=== PATIENT | male | born 1940 ===

== ENCOUNTER 2020-04-05 01:44 | Emergency (ER) | payer MEDICARE ==
[~2020-04-05] VITALS: Ht 177.8 cm; Wt 95.3 kg
[~2020-04-05 01:44] MED LIST: APIX5TAB PO; ASCO10006 PO; ASPI-999 PO; CHOL2000 PO; CYAN250010 PO; DILT240C92 PO; Finasteride PO; LOSA100T57 PO; MAGN250T13 PO; MELO15TA39 PO; MTP100TCR PO; MTP25TSR PO; MULT-974 PO; SIMV20TA26 PO; TMSL.4C PO; UBID1CAP53 PO; UBID50TA3 PO; VITA40TA PO; ZINC50TA51 PO; [UNRECOGNIZED DRUG - CODE] MC
--- OUTSIDE RECORDS SUMMARY | 2020-04-05 01:50 | XMS REPORT | Continuity of Care Document ---
Author Organization Unknown Address Unknown Phone Unavailable Allergies Active Description Code Type Severity Reaction Onset Reported/Identified Relationship to Patient Clinical Status Yes No Known Drug Allergies [id number] Drug Allergy Unknown N/A 02/28/2019 Medications There is no data. Problems Date Dx Coded Attending Type Code Diagnosis Diagnosed By 03/01/2019 KELLY ROMAN MD, Ot E78. 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 91 UNSPECIFIED ATRIAL FIBRILLATION 03/01/2019 KELLY ROMAN MD, Ot I71. 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 1 BENIGN PROSTATIC HYPERPLASIA WITH LOWER 03/01/2019 KELLY ROMAN MD Ot R33. 8 OTHER RETENTION OF URINE 03/01/2019 KELLY ROMAN MD Ot Z91. 19 PATIENT'S NONCOMPLIANCE W OT MEDICAL TR Procedures There is no data. Results Test Result Range Complete urinalysis with reflex to cultu re - 02/28/19 06:45 Urine color determination YELLOW NRG Urine clarity determination CLEAR NR G Urine pH measurement by test strip 6 5-9 Specific gravity of urine by test strip 1.015 1.016-1.022 Urine protein assay by test strip, semi-quantitative 2+ NEGATIVE Urine glucose detection by automated test strip NE GATIVE NEGATIVE Erythrocytes detection in urine sediment by light micr oscopy 1+ NEGATIVE Urine ketones detection by automated test strip NE GATIVE NEGATIVE Urine nitrite detection by test strip NEGATIVE NEGATIVE Urine total bilirubin detection by test strip NEGA TIVE NEGATIVE Urine urobilinogen measurement by automated test strip (mass/volume) NORMAL NORMAL Urine leukocyte esterase detection by dipstick NEG ATIVE NEGATIVE Automated urine sediment erythrocyte cou nt by microscopy (number/high power field) [HPF] NRG Automated urine sediment leukocyte count by microscopy (number/high power field) NONE NRG Bacteria detection in urine sediment by light microsco py NEGATIVE NRG Crystals detection in urine sediment by light microsco py NONE NRG Casts detection in urine sediment by light microscopy NONE NRG Mucus detection in urine sediment by light microscopy NEGATIVE NRG Complete urinalysis with reflex to culture NO NRG Complete blood count (CBC) with automate d white blood cell (WBC) differential - 02/28/19 07:45 Blood leukocytes automated count (number/volume) 10.8 10*3/uL 4.3-11.0 Blood erythrocytes automated count (number/volume) 5.16 10*6/uL 4.35-5.85 Venous blood hemoglobin measurement (mass/volume) 15.4 g/dL 13.3-17.7 Blood hematocrit (volume fraction) 46 % 40-54 Automated erythrocyte mean corpuscular volume 90 [ foz_us] 80-99 Automated erythrocyte mean corpuscular h emoglobin (mass per erythrocyte) 30 pg 25-34 Automated erythrocyte mean corpuscular h emoglobin concentration measurement (mass/volume) 33 g/dL 32-36 Automated erythrocyte distribution width ratio 15. 0 % 10.0- 14.5 Automated blood platelet count (count/volume) 334 10*3/uL 130-400 Automated blood platelet mean volume measurement 9.7 [foz_us] 7.4-10.4 Automated blood neutrophils/100 leukocytes 79 % 42-75 Automated blood lymphocytes/100 leukocytes 10 % 12-44 Blood monocytes/100 leukocytes 8 % 0-12 Automated blood eosinophils/100 leukocytes 2 % 0-10 Automated blood basophils/100 leukocytes 0 % 0-10 Blood neutrophils automated count (number/volume) 8.6 10*3 1.8-7.8 Blood lymphocytes automated count (number/volume) 1.1 10*3 1.0-4.0 Blood monocytes automated count (number/volume) 0. 9 10*3 0.0-1.0 Automated eosinophil count 0.3 10*3/uL 0 .0-0.3 Automated blood basophil count (count/volume) 0.0 10*3/uL 0.0-0.1 PT panel in platelet poor plasma by coag ulation assay - 02/28/19 07:45 Prothrombin time (PT) in platelet poor plasma by coagu lation assay 14.0 s 12.2-14.7 INR in platelet poor plasma or blood by coagulation as say 1.0 0.8-1.4 Activated partial thromboplastin time (a PTT) in platelet poor plasma bycoagulation assay - 02/28/19 07:45 Activated partial thromboplastin time (a PTT) in platelet poor plasma bycoagulation assay 32 s 24-35 Comprehensive metabolic panel - 02/28/19 07:45 Serum or plasma sodium measurement (moles/volume) 139 mmol/L 135-145 Serum or plasma potassium measurement (moles/volume) 3.8 mmol/L 3.6-5.0 Serum or plasma chloride measurement (moles/volume) 105 mmol/L 98-107 Carbon dioxide 22 mmol/L 21-32 Serum or plasma anion gap determination (moles/volume) 12 mmol/L 5-14 Serum or plasma urea nitrogen measurement (mass/volume ) 16 mg/dL 7-18 Serum or plasma creatinine measurement (mass/volume) 1.14 mg/dL 0.60-1.30 Serum or plasma urea nitrogen/creatinine mass ratio 14 NRG Serum or plasma creatinine measurement w ith calculation of estimated glomerular filtration rate > NRG Serum or plasma glucose measurement (mass/volume) 156 mg/dL 70-105 Serum or plasma calcium measurement (mass/volume) 9.2 mg/dL 8.5-10.1 Serum or plasma total bilirubin measurement (mass/volu me) 0.6 mg/dL 0.1-1.0 Serum or plasma alkaline phosphatase maile surement (enzymatic activity/volume) 103 U/L 40-136 Serum or plasma aspartate aminotransfera se measurement (enzymatic activity/volume) 31 U/L 5-34 Serum or plasma alanine aminotransferase measurement (enzymatic activity/volume) 53 U/L 0-55 Serum or plasma protein measurement (mass/volume) 7.2 g/dL 6.4-8.2 Serum or plasma albumin measurement (mass/volume) 4.2 g/dL 3.2-4.5 CALCIUM CORRECTED 9.0 mg/dL 8.5-10.1 Magnesium - 02/28/19 07:45 Magnesium 2.0 mg/dL 1.8-2.4 Serum or plasma troponin i.cardiac measu rement (mass/volume) - 02/28/19 07:45 Serum or plasma troponin i.cardiac measurement (mass/v olume) < ng/mL <0.028 Serum or plasma thyrotropin measurement by detection limit <=0.05 miu/l (units/volume) - 02/28/19 07:45 Serum or plasma thyrotropin measurement by detection limit <=0.05 miu/l (units/volume) 2.40 u[iU]/mL 0.35-4.94 Methicillin resistant Staphylococcus aur eus (MRSA) screening culture - 02/28/19 10:55 Methicillin resistant Staphylococcus aureus (MRSA) scr eening culture NEG G Lipid 1996 panel - 03/01/19 03:20 Serum or plasma triglyceride measurement (mass/volume) 67 mg/dL <150 Serum or plasma cholesterol measurement (mass/volume) 124 mg/dL < 200 Serum or plasma cholesterol in HDL measurement (mass/v olume) 41 mg/dL 40-60 Cholesterol in LDL [mass/volume] in serum or plasma by direct assay 78 mg/dL 1-129 Serum or plasma cholesterol in VLDL measurement (mass/ volume) 13 mg/dL 5-40 Encounters ACCT No. Visit Date/Time Discharge Status Pt. Type Provider Facility Loc./Unit Complaint [id number] 02/28/2019 09:08:00 019 16:05:00 DIS Inpatient JESSIE CORNELIUS, KELLY [facility] ICU A-FIB W/ RVR, URINARY R ETENTION
[2020-04-05] MEDS ORDERED: LIDOCAINE UROJET 2% GEL 10 ML PKG TOP ONE (02:00)
[2020-04-05 02:20] LABS: BILIRUBIN,URINE NEGATIVE (NEGATIVE); CLARITY,URINE CLEAR; COLOR,URINE YELLOW; GLUCOSE, URINE (UA) NEGATIVE (NEGATIVE); KETONES,URINE NEGATIVE (NEGATIVE); LEUKOCYTE ESTERASE ,URINE NEGATIVE (NEGATIVE); NITRITE,URINE NEGATIVE (NEGATIVE); PH,URINE 5.5 (5-9); PROTEIN,URINE NEGATIVE (NEGATIVE)
--- NOTE | 2020-04-05 02:33 | ED GU-Male ---
General Chief Complaint: - Urinary Stated Complaint: URINE RETENTION Nursing Triage Note: TO ED VIA POV AND AMBULATORY TO ROOM 7 WITH C/O URINARY RETENTION AND HAS NOT BEEN ABLE TO URINATE FOR SEVERAL HOURS. TOOK 2 EXTRA FLOMAX AT THAT TIME. C/O EXTREME PAIN. Source: patient Exam Limitations: no limitations History of Present Illness Date Seen by Provider: Apr 05, 2020 Time Seen by Provider: 01:48 Initial Comments This 79-year-old gentleman presents to the emergency room with inability to urinate for several hours. He is in distress from pelvic pain. He has history of urinary retention and has required catheter in the past. He takes Flomax for BPH. He took some Benadryl earlier in the day which may have contributed to retention. He reports nasal congestion from allergies. Allergies and Home Medications Allergies Coded Allergies: No Known Drug Allergies (Unverified , 02/28/19) Home Medications Apixaban 5 Mg Tablet, 5 MG PO BID Prescribed by: KELLY ROMAN on 03/01/19 1535 Ascorbic Acid 1,000 Mg Tablet, 1,000 MG PO DAILY, (Reported) Aspirin 81 Mg Tab.chew, 81 MG PO DAILY, (Reported) Cholecalciferol (Vitamin D3) 2,000 Unit Capsule, 2,000 UNIT PO DAILY, (Reported) Cyanocobalamin (Vitamin B-12) 2,500 Mcg Tablet, 2,500 MCG PO DAILY, (Reported) Diltiazem HCl 240 Mg Cap.er.24h, 240 MG PO DAILY Prescribed by: KELLY ROMAN on 03/01/19 1535 Fluticasone Propionate 9.9 Ml [place].susp, 2 SPRAY NSEACH DAILY 2 SPRAYS PER NOSTRIL DAILY X 2 DAYS THEN 1 SPRAY DAILY Prescribed by: MARVIN ORTIZ on 04/05/20 0255 Magnesium Oxide 250 Mg Tablet, 250 MG PO DAILY, (Reported) Meloxicam 15 Mg Tablet, 15 MG PO DAILY PRN for arthritis pain, (Reported) Metoprolol Succinate 100 Mg Tab.er.24h, 200 MG PO DAILY Prescribed by: KELLY ROMAN on 03/01/19 1535 Multivitamin 1 Each Tablet, 1 TAB PO DAILY, (Reported) Simvastatin 20 Mg Tablet, 20 MG PO DAILY, (Reported) Tamsulosin HCl 0.4 Mg Cap, 0.4 MG PO DAILY@1800 Prescribed by: MAO BRYANT on 03/01/19 0952 Ubidecarenone/Vit E Acetate 1 Each Capsule, 1 CAP PO DAILY, (Reported) Vitamin K2 40 Mcg Tablet, 40 MCG PO DAILY, (Reported) Zinc Amino Acid Chelate 50 Mg Tablet, 50 MG PO DAILY, (Reported) [Finasteride] 5 MG TAB, 5 MG PO DAILY@0900 Prescribed by: MAO BRYANT on 03/01/1951 Patient Home Medication List Home Medication List Reviewed: Yes Review of Systems Review of Systems Constitutional: no symptoms reported EENTM: see HPI Respiratory: no symptoms reported Cardiovascular: no symptoms reported Gastrointestinal: no symptoms reported Genitourinary: see HPI Musculoskeletal: no symptoms reported Skin: no symptoms reported Psychiatric/Neurological: No Symptoms Reported Endocrine: No Symptoms Reported Past Oysxmab-Kqlwpu-Vmwhut Hx Past Med/Social Hx: Reviewed and Corrections made Patient Social History Alcohol Use: Denies Use Recreational Drug Use: No Drug of Choice: CANNIBUS Smoking Status: Never a Smoker 2nd Hand Smoke Exposure: No Recent Foreign Travel: No Contact w/Someone Who Travel: No Recent Infectious Disease Expo: No Recent Hopitalizations: No Physical Abuse: No Sexual Abuse: No Mistreated: No Fear: No Immunizations Up To Date Date of Pneumonia Vaccine: Feb 28, 2019 Seasonal Allergies Seasonal Allergies: No Past Medical History Surgeries: Yes Tonsillectomy Respiratory: No Cardiac: Yes Aneurysm, Atrial Fibrillation, Hypertension Neurological: No Genitourinary: Yes Benign Prostatic Hyperpl Gastrointestinal: No Musculoskeletal: No Endocrine: No HEENT: No Cancer: No Psychosocial: No Integumentary: No Blood Disorders: No Family Medical History Reviewed Nursing Family Hx Cardiovascular disease 19 MOTHER, Onset:60 years & older Congenital heart disease 19 MOTHER, Onset:Unknown Physical Exam Vital Signs Vital Signs - First Documented 04/05/20 04/05/20 01:54 03:00 Temp 35.9 Pulse 100 Resp 20 B/P (MAP) 190/108 (135) Pulse Ox 98 O2 Delivery Room Air Capillary Refill : Less Than 3 Seconds Height, Weight, BMI Height: 5'8.00" Weight: 211lbs. 5.0oz. 95.298728ct; 30.00 BMI Method:Stated General Appearance: WD/WN, no apparent distress HEENT: PERRL/EOMI, normal ENT inspection Neck: normal inspection Cardiovascular: regular rate, rhythm, no edema, no murmur Respiratory: lungs clear, normal breath sounds, no respiratory distress Gastrointestinal: normal bowel sounds, soft, tenderness (suprapubic, resolving after catheter placement) Male: normal genitalia Extremities: normal inspection, no pedal edema Neurologic/Psychiatric: vice president payer II-XII nml as tested, no motor/sensory deficits, alert, normal mood/affect, oriented x 3 Skin: normal color, warm/dry Progress/Results/Core Measures Suspected Sepsis Recent Fever Within 48 Hours: No Infection Criteria Present: Suspected New Infection New/Unexplained Altered Menta: No Sepsis Screen: Possible Severe Sepsis Risk SIRS Temperature: Pulse: 100 Respiratory Rate: 20 Blood Pressure 190 /108 Mean: 135 Results/Orders Lab Results Laboratory Tests Test 04/05/20 02:05 Range/Units Urine Color YELLOW Urine Clarity CLEAR Urine pH 5.5 5-9 Urine Specific [place] 1.020 1.016-1.022 Urine Protein NEGATIVE NEGATIVE Urine Glucose (UA) NEGATIVE NEGATIVE Urine Ketones NEGATIVE NEGATIVE Urine Nitrite NEGATIVE NEGATIVE Urine Bilirubin NEGATIVE NEGATIVE Urine Urobilinogen 0.2 < = 1.0 MG/DL Urine Leukocyte Esterase NEGATIVE NEGATIVE Urine RBC (Auto) 3+ H NEGATIVE Urine RBC >100 H /HPF Urine WBC RARE /HPF Urine Squamous Epithelial Cells 10-25 H /HPF Urine Crystals NONE /LPF Urine Bacteria NEGATIVE /HPF Urine Casts NONE /LPF Urine Mucus NEGATIVE /LPF Urine Culture Indicated NO My Orders Orders - MARVIN BOATENG MD Ua Culture If Indicated (04/05/20 01:48) Lidocaine 2% (Urojet) (Xylocaine Urojet) (04/05/20 02:00) Wood Cath (04/05/20 02:29) Medications Given in ED Current Medications Medications Dose Ordered Sig/Aleksey Route Start Time Stop Time Status Last Admin Dose Admin Lidocaine HCl 10 ml ONCE ONCE TOP 04/05/20 02:00 04/05/20 02:02 DC 04/05/20 02:13 10 ML Vital Signs/I&O 04/05/20 04/05/20 01:54 03:00 Temp 35.9 35.9 Pulse 100 89 Resp 20 18 B/P (MAP) 190/108 (135) 167/89 (135) Pulse Ox 98 O2 Delivery Room Air Capillary Refill : Less Than 3 Seconds Blood Pressure Mean: 135 Progress Note : Progress Note Wood catheter was placed which immediately yielded approximately 700 mL of urine. Patient was given a list of medications that may cause urinary retention.. He was advised to try Flonase instead of antihistamines. Catheter remained in and leg bag was placed. He was advised follow-up with Dr. Holloway on Monday. Departure Impression Primary Impression: Urinary retention Additional Impression: Allergic rhinitis Qualified Codes: J30.9 - Allergic rhinitis, unspecified Disposition: HOME, SELF-CARE Condition: Improved Departure-Patient Inst. Decision time for Depature: 02:32 Referrals: NO,LOCAL PHYSICIAN (PCP) Primary Care Physician MARNI HOLLOWAY MD Patient Instructions: Wood Catheter, Male Add. Discharge Instructions: Avoid medications on the list provided that can worsen urinary retention. Continue the medications you were previously prescribed, especially Flomax. Try using Flonase instead of antihistamines for allergies. Follow-up with Dr. Holloway on Monday to schedule a time for catheter removal. Keep your catheter bag lower than the level of your bladder. Return to care or call if you have any further problems or concerns. All discharge instructions reviewed with patient and/or family. Voiced understanding. Scripts Fluticasone Propionate (Flonase Allergy Relief) 9.9 Ml [place].susp 2 SPRAY NSEACH DAILY, #1 EACH 2 SPRAYS PER NOSTRIL DAILY X 2 DAYS THEN 1 SPRAY DAILY Prov: MARVIN BOATENG MD 04/05/20 Copy Copies To 1: MARNI HOLLOWAY MD, JOSHUA T MD Apr 05, 2020 02:33
[2020-04-05 02:51] LABS: BACTERIA,URINE NEGATIVE /HPF; RBC,URINE >100 /HPF; WBC,URINE RARE /HPF
[2020-04-05] MEDS ORDERED: FLUT9.9S NSEACH (02:55)
[2020-04-05 03:00] VITALS: BP 167/89
== END 2020-04-05 03:05 | disposition home or self-care (01) ==
LOC: EDUNIT# 01:44 → ER 01:46
DX: R33.9 Retention of urine, unspecified (principal); J30.9 Allergic rhinitis, unspecified; I48.91 Unspecified atrial fibrillation; I10 Essential (primary) hypertension; N40.1 Benign prostatic hyperplasia with lower urinary tract symptoms; Z82.49 Family history of ischemic heart disease and other diseases of the circulatory system; Z79.01 Long term (current) use of anticoagulants; Z79.82 Long term (current) use of aspirin
CPT/HCPCS: 51702; 81000